=== PATIENT | female | born 1990 | race Hispanic/Latino ===

== ENCOUNTER 2017-01-08 17:29 | Emergency (ER) | payer MEDICAID ==
[2017-01-08 17:48] VITALS: BP 153/90
== END 2017-01-08 20:00 | disposition left against medical advice (07) ==
LOC: ED 17:29
DX: R07.89 Other chest pain (principal); R42 Dizziness and giddiness; Z53.21 Procedure and treatment not carried out due to patient leaving prior to being seen by health care provider
CPT/HCPCS: 93005; 93010

== ENCOUNTER 2017-03-16 16:05 | Emergency (ER) | payer MEDICAID ==
--- NOTE | 2017-03-16 23:45 | Emergency Department Report ---
ED ENT HPI - General Chief complaint: Dental/Oral Stated complaint: SEVERE TOOTHACHE Time Seen by Provider: 03/16/17 22:34 Source: patient Mode of arrival: Ambulatory Limitations: No Limitations - History of Present Illness Initial comments: This is a 26-year-old female well-nourished with nontoxic or ill in appearance that presents with dental caries. Patient stated that she has an appointment with Dr. miranda an oral surgeon on the for her dental caries. Patient stated that the mother was are not able to see her earlier. She stated Dr. miranda instructed her to come to the emergency room if pain does not subside with ibuprofen. Patient stated has a history of this for the past 2 years but denies having medical treatment. Patient denies any fever, chills, abscess, difficulty breathing, swallowing, chest pain, shortness of breath, nausea vomiting. Patient denies any allergies. Patient stated the only thing that makes her feel better is a narcotic such as Ultram. MD complaint: tooth pain -: Gradual, year(s) (2) Location: tooth # (4-14 ) Severity: moderate Severity scale (0 -10): 7 Quality: aching Consistency: constant Improves with: other medication (Ultram) Context- Dental: history of dental caries, poor dental care Associated Symptoms: denies: fever, cough, gum swelling, toothache, pain with swallowing, sore throat, tinnitus, hearing loss, discharge from ear, rhinorrhea - Related Data Previous Rx's Medication Instructions Recorded Last Taken Type Acetaminophen/Codeine [Tylenol #3] 1 tab PO Q6H PRN #20 tab 05/10/16 Unknown Rx Penicillin Vk [Veetids TAB] 500 mg PO Q8H #30 tablet 05/10/16 Unknown Rx Ibuprofen [Motrin 600 MG tab] 600 mg PO Q8H PRN #15 tablet 03/16/17 Unknown Rx Allergies Allergy/AdvReac Type Severity Reaction Status Date / Time No Known Allergies Allergy Verified 01/08/17 17:50 ED Dental HPI - General Chief complaint: Dental/Oral Stated complaint: SEVERE TOOTHACHE Time Seen by Provider: 03/16/17 22:34 Source: patient Mode of arrival: Ambulatory Limitations: No Limitations - Related Data Previous Rx's Medication Instructions Recorded Last Taken Type Acetaminophen/Codeine [Tylenol #3] 1 tab PO Q6H PRN #20 tab 05/10/16 Unknown Rx Penicillin Vk [Veetids TAB] 500 mg PO Q8H #30 tablet 05/10/16 Unknown Rx Ibuprofen [Motrin 600 MG tab] 600 mg PO Q8H PRN #15 tablet 03/16/17 Unknown Rx Allergies Allergy/AdvReac Type Severity Reaction Status Date / Time No Known Allergies Allergy Verified 01/08/17 17:50 ED Review of Systems ROS: Stated complaint: SEVERE TOOTHACHE Other details as noted in HPI Constitutional: denies: chills, fever Eyes: denies: eye pain, eye discharge, vision change ENT: denies: ear pain, throat pain Respiratory: denies: cough, shortness of breath, wheezing Cardiovascular: denies: chest pain, palpitations Endocrine: no symptoms reported Gastrointestinal: denies: abdominal pain, nausea, diarrhea Genitourinary: denies: urgency, dysuria, discharge Musculoskeletal: denies: back pain, joint swelling, arthralgia Skin: denies: rash, lesions Neurological: denies: headache, weakness, paresthesias Psychiatric: denies: anxiety, depression Hematological/Lymphatic: denies: easy bleeding, easy bruising ED Past Medical Hx - Past Medical History Previous Medical History?: Yes Additional medical history: BELLS PALSY - Surgical History Hx Cholecystectomy: Yes Additional Surgical History: pyloric stenosis, R arm - Social History Smoking Status: Current Every Day Smoker Substance Use Type: None - Medications Home Medications: Home Medications Medication Instructions Recorded Confirmed Last Taken Type Acetaminophen/Codeine [Tylenol #3] 1 tab PO Q6H PRN #20 tab 05/10/16 Unknown Rx Penicillin Vk [Veetids TAB] 500 mg PO Q8H #30 tablet 05/10/16 Unknown Rx Ibuprofen [Motrin 600 MG tab] 600 mg PO Q8H PRN #15 tablet 03/16/17 Unknown Rx ED Physical Exam - General Limitations: No Limitations General appearance: alert, in no apparent distress - Head Head exam: Present: atraumatic, normocephalic - Eye Eye exam: Present: normal appearance, PERRL, EOMI Pupils: Present: normal accommodation - ENT ENT exam: Present: normal exam, normal orophraynx, mucous membranes moist, TM's normal bilaterally, normal external ear exam - Expanded ENT Exam Expanded Ear exam: Present: normal external inspection Mouth exam: Present: normal external inspection, tongue normal. Absent: drooling, trismus, muffled voice, tongue elevation, laceration Teeth exam: Present: dental caries (4-14). Absent: gingival enlargement Throat exam: Positive: normal inspection. Negative: tonsillar erythema, tonsillomegaly, tonsillar exudate, R peritonsillar mass, L peritonsillar mass - Neck Neck exam: Present: normal inspection - Respiratory Respiratory exam: Present: normal lung sounds bilaterally. Absent: respiratory distress - Cardiovascular Cardiovascular Exam: Present: regular rate, normal rhythm. Absent: systolic murmur, diastolic murmur, rubs, gallop - GI/Abdominal GI/Abdominal exam: Present: soft, normal bowel sounds - Extremities Exam Extremities exam: Present: normal inspection, full ROM, normal capillary refill. Absent: tenderness, pedal edema, joint swelling, calf tenderness - Back Exam Back exam: Present: normal inspection, full ROM. Absent: tenderness, CVA tenderness (R), CVA tenderness (L), muscle spasm, paraspinal tenderness, vertebral tenderness, rash noted - Neurological Exam Neurological exam: Present: alert, oriented X3, CN II-XII intact, normal gait - Psychiatric Psychiatric exam: Present: normal affect, normal mood - Skin Skin exam: Present: warm, dry, intact, normal color. Absent: rash - Other Other exam information: No dental abscess. No dental pus. No dental drainage. ED Course Vital Signs 03/16/17 17:43 Temperature 98.9 F Pulse Rate 68 Respiratory 18 Rate Blood Pressure 123/63 O2 Sat by Pulse 98 Oximetry ED Medical Decision Making - Medical Decision Making Ed course: This is a 26-year-old female that presents with several dental carries with a 2 year hx of this problem 1- after my physical exam, patient received ibuprofen 600 mg by mouth at the time of discharge. 2-patient was referred to another dentist/oral surgeon to have the patient be seen before the . 3- at time time of discharge, the patient does not seem toxic or ill in appearance. No acute signs of distress noted. Patient agrees to discharge treatment plan of care. No further questions noted by the patient. Critical care attestation.: If time is entered above; I have spent that time in minutes in the direct care of this critically ill patient, excluding procedure time. ED Disposition Clinical Impression: Dental caries Disposition: DISCHARGED TO HOME OR SELFCARE Is pt being admited?: No Does the pt Need Aspirin: No Condition: Stable Instructions: Dental Caries (ED) Additional Instructions: Follow-up with a dentist/oral surgeon as soon as possible. You have been referred to several other dentist/oral surgeon. Take ibuprofen as prescribed as needed for pain. Prescriptions: Ibuprofen [Motrin 600 MG tab] 600 mg PO Q8H PRN #15 tablet PRN Reason: Pain Referrals: LIZZ WISE MD [Primary Care Provider] - 3-5 Days [facility] [Outside] - 24 Hours Forms: Work/School Release Form(ED)
[2017-03-16 23:51] VITALS: BP 114/78
== END 2017-03-16 23:55 | disposition home or self-care (01) ==
LOC: ED 16:05
DX: K02.9 Dental caries, unspecified (principal); F17.200 Nicotine dependence, unspecified, uncomplicated
CPT/HCPCS: 99282

== ENCOUNTER 2017-09-30 10:29 | Emergency (ER) | payer MEDICAID ==
[2017-09-30 10:39] VITALS: BP 123/54
[2017-09-30] MEDS ORDERED: VIBRAMYCIN PO ONE (12:09)
--- NOTE | 2017-09-30 12:09 | Emergency Department Report ---
Chief Complaint: Skin/Abscess/Foreign Body Stated Complaint: BUTTOCKS ABSCESS Time Seen by Provider: 09/30/17 12:07 - HPI History of Present Illness: Patient is a 26-year-old female who is presenting with a left buttock abscess. Patient states that this has been present for the last 3 days. She states that it was draining however it appears that it has stopped and it is gotten larger over the last several days. Patient denies fever nausea vomiting diarrhea. Patient has 8 out of 10. - ROS Review of Systems: As this is negative except for those elements in the HPI - Exam Vital Signs: Vital Signs 09/30/17 10:35 Temperature 98.1 F Pulse Rate 87 Respiratory 18 Rate Blood Pressure 123/54 O2 Sat by Pulse 100 Oximetry Physical Exam: His physical exam shows area of induration and cellulitis to the left lower buttock with central fluctuance and purulent and bloody drainage MSE screening note: Focused history and physical exam performed. Due to findings the following was ordered: Patient will undergo a I&D procedure here in fast track area ED Disposition for MSE Condition: Stable Referrals: ELISHA FARRAR MD [Primary Care Provider] - 3-5 Days
[2017-09-30] MEDS ORDERED: PERCOCET 5/325 PO ONE (12:10)
--- NOTE | 2017-09-30 12:22 | Emergency Department Report ---
Abscess Boil HPI - HPI Chief Complaint: Skin/Abscess/Foreign Body Stated Complaint: BUTTOCKS ABSCESS Time Seen by Provider: 09/30/17 12:07 Duration: 5 Days Severity: Mild History: Yes Pain, Yes Purulent Drainage, No Fever, No Numbness, No Foreign Body , No Previous History, No Insect Bite HPI: 26-year-old female presents to ED complaining of abscess on her left neck region. She states that it started draining a couple of days ago and she put some gauze and taped it up to draining. She denies fevers/chills/nausea/ vomiting or any other problems Home Medications: Previous Rx's Medication Instructions Recorded Last Taken Type Penicillin Vk [Veetids TAB] 500 mg PO Q8H #30 tablet 05/10/16 Unknown Rx Acetaminophen/Codeine [Tylenol 1 tab PO Q6H PRN #10 tab 09/30/17 Unknown Rx /Codeine # 3 tab] Ibuprofen [Motrin 600 MG tab] 600 mg PO Q8H PRN #30 tablet 09/30/17 Unknown Rx Sulfamethoxazole/Trimethoprim 1 each PO BID #20 tablet 09/30/17 Unknown Rx [Bactrim DS TAB] Allergies/Adverse Reactions: Allergies Allergy/AdvReac Type Severity Reaction Status Date / Time No Known Allergies Allergy Verified 09/30/17 10:39 ED Review of Systems ROS: Stated complaint: BUTTOCKS ABSCESS Other details as noted in HPI Constitutional: denies: chills, fever Eyes: denies: eye pain, eye discharge, vision change ENT: denies: ear pain, throat pain Respiratory: denies: cough, shortness of breath, wheezing Cardiovascular: denies: chest pain, palpitations Endocrine: no symptoms reported Gastrointestinal: denies: abdominal pain, nausea, vomiting, diarrhea Genitourinary: denies: urgency, dysuria, discharge Musculoskeletal: denies: back pain, joint swelling, arthralgia Skin: denies: rash, lesions Neurological: denies: headache, weakness, paresthesias Psychiatric: denies: anxiety, depression Hematological/Lymphatic: denies: easy bleeding, easy bruising ED Past Medical Hx - Past Medical History Previous Medical History?: Yes Additional medical history: BELLS PALSY - Surgical History Past Surgical History?: Yes Hx Cholecystectomy: Yes Additional Surgical History: pyloric stenosis, R. arm surgery - Social History Smoking Status: Never Smoker - Medications Home Medications: Home Medications Medication Instructions Recorded Confirmed Last Taken Type Penicillin Vk [Veetids TAB] 500 mg PO Q8H #30 tablet 05/10/16 Unknown Rx Acetaminophen/Codeine [Tylenol 1 tab PO Q6H PRN #10 tab 09/30/17 Unknown Rx /Codeine # 3 tab] Ibuprofen [Motrin 600 MG tab] 600 mg PO Q8H PRN #30 tablet 09/30/17 Unknown Rx Sulfamethoxazole/Trimethoprim 1 each PO BID #20 tablet 09/30/17 Unknown Rx [Bactrim DS TAB] ED Abscess Boil Physical Exam - Exam General: Vital signs noted. No distress. Alert and acting appropriately. Front/Back of Body, Lg (Color): 1 - 4cm abscess Size: 4 cm Exam: Yes Fluctuance, Yes Surrounding Cellulites/Erythema, Yes Normal Circulation, No Tenderness, No Lymphangitis, No Crepitation, No Heart Murmur, No Normal Neurologic Exam I & D Note - I & D Note I & D Note: Patient positioned appropriately, 15cc lidocaine with/without epinephrine was used as a local anesthetic. #11 blade scalpal used for single incision. Additional local anesthetic injected into surrounding viable tissue prior to blunt dissection of loculated adhesions. Copius drainage of pus. Wound packed with iodoform gauze. Procedure tolerated without complications. Wound dressed with sterile 4x4 guaze and paper tape. Pt tolerated procedure well. ED Course Vital Signs 09/30/17 09/30/17 10:35 12:16 Temperature 98.1 F Pulse Rate 87 Respiratory 18 20 Rate Blood Pressure 123/54 O2 Sat by Pulse 100 Oximetry Critical care attestation.: If time is entered above; I have spent that time in minutes in the direct care of this critically ill patient, excluding procedure time. ED Medical Decision Making - Medical Decision Making 26-year-old female presents with left buttock abscess Course: Patient given pain medication and I&D tray set up See my I&D note. Discussed the patient to return to the ED in 3 days to have packing removed and wound assessed. Discussed follow-up with primary care physician in 5 days. Discussed to take antibiotics as prescribed Vital signs stable. patient tolerated procedure well ED Disposition Clinical Impression: Cellulitis and abscess of buttock Disposition: DC- TO HOME OR SELFCARE Is pt being admited?: No Does the pt Need Aspirin: No Condition: Stable Instructions: Abscess Incision and Drainage (ED), Abscess (ED) Additional Instructions: Make sure to follow up with the primary care physician as discussed. Take all your medications as you've been prescribed. If you have any worsening symptoms or develop new symptoms please return to ED immediately. Return to ED 3 days for wound check and packing removal Prescriptions: Acetaminophen/Codeine [Tylenol /Codeine # 3 tab] 1 tab PO Q6H PRN #10 tab PRN Reason: Pain Ibuprofen [Motrin 600 MG tab] 600 mg PO Q8H PRN #30 tablet PRN Reason: Pain Sulfamethoxazole/Trimethoprim [Bactrim DS TAB] 1 each PO BID #20 tablet Referrals: ELISHA FARRAR MD [Primary Care Provider] - 3-5 Days [facility] [place] [Outside] - 3-5 Days [facility] [Outside] - 3-5 Days Forms: Accompanied Note, Work/School Release Form(ED) Time of Disposition: 13:22
[2017-09-30] MEDS ORDERED: XYLOCAINE 1% 20 mL INFILTRATI NR (12:30)
== END 2017-09-30 13:32 | disposition home or self-care (01) ==
LOC: ED 10:29
DX: L02.31 Cutaneous abscess of buttock (principal); L03.317 Cellulitis of buttock
CPT/HCPCS: 99282

== ENCOUNTER 2020-02-10 08:43 | Outpatient (CLI) | payer MEDICAID ==
[2020-02-10 09:18] VITALS: BP 126/89
[2020-02-10 11:56] LABS: Hematocrit 36.5 % (30.3-42.9); Hemoglobin 12.1 gm/dl (10.1-14.3); Mean Corpuscular HGB Conc 33 % (30-34); Mean Corpuscular Volume 91 fl (79-97); Platelet Count 352 K/mm3 (140-440); Red Blood Count 4.02 M/mm3 (3.65-5.03); Red Cell Distribution Width 13.2 % (13.2-15.2)
--- NOTE | 2020-02-10 12:30 | Ultrasound Report ---
ULTRASOUND OBSTETRIC third trimester Biophysical profile INDICATION / CLINICAL INFORMATION: MICHAEL, EFW, RULE OUT ABRUPTION, PRESENTATION. Clinical Gestational Age (GA): 38 weeks 3 days TECHNIQUE: Transabdominal. COMPARISON: None available. FINDINGS: There is a single intrauterine . Biparietal Diameter = 9.2 cm = 37 weeks, 3 day(s). Head Circumference = 33.5 cm = 38 weeks, 2 day(s). Abdominal Circumference = 35.8 cm = 39 weeks, 5 day(s). Femur Length = 7.5 cm = 38 weeks, 1 day(s). Average Ultrasound Age (AUA) = 38 weeks, 3 day(s). Heart Rate: 152 beats per minute. Estimated Weight in grams (if calculated): 3626 Estimated Weight Growth Percentile (if calculated): Position: cephalic. Cervix: closed. Length in cm (if measured): Placenta: Posterior fundal grade 2 and free of the os. Amniotic Fluid Volume: normal Amniotic Fluid Index (MICHAEL) in cm (if calculated): 15. Maternal Adnexa: No significant abnormality. ULTRASOUND BIOPHYSICAL PROFILE INDICATION: MICHAEL, EFW, RULE OUT ABRUPTION, PRESENTATION. COMPARISON: None available. FINDINGS: BREATHING MOVEMENT = 2 GROSS BODY MOVEMENT = 2 TONE = 2 QUALITATIVE AMNIOTIC FLUID VOLUME = 2 TOTAL BIOPHYSICAL SCORE = 8/8 AMNIOTIC FLUID INDEX (cm) = 15 PRESENTATION: Cephalic. HEART RATE (beats per minute): 152 IMPRESSION: 1. biophysical profile = 8/8 IMPRESSION: 1. Single, living intrauterine with estimated sonographic age of 38 weeks, 3 day(s). 2. No significant sonographic abnormality. 3. Normal biophysical profile Signer Name: Graeme Astorga MD Signed: 02/10/2020 12:25 PM Workstation Name: [email or web address]
--- NOTE | 2020-02-12 22:11 | Ultrasound Report ---
ULTRASOUND BIOPHYSICAL PROFILE INDICATION / CLINICAL INFORMATION: WELL BEING. COMPARISON: None available. FINDINGS: BREATHING MOVEMENT = 2 GROSS BODY MOVEMENT = 2 TONE = 2 QUALITATIVE AMNIOTIC FLUID VOLUME = 2 TOTAL BIOPHYSICAL SCORE = 05/25 AMNIOTIC FLUID INDEX (cm) = 15.0 PRESENTATION: Cephalic. HEART RATE (beats per minute): 152 IMPRESSION: biophysical profile = 05/25 Signer Name: Trell Lombardo MD Signed: 02/12/2020 10:06 PM Workstation Name: [email or web address]
== END 2020-02-10 13:35 | disposition home or self-care (01) ==
LOC: TRG 08:43 → APU 08:47 → TRG 13:35
PROVIDERS: ATTEND Obstetrics & Gynecology
DX: O46.8X3 Other antepartum hemorrhage, third trimester (principal); Z3A.39 39 weeks gestation of pregnancy
CPT/HCPCS: 36415; 59025; 76805; 76819; 85027

== ENCOUNTER 2020-02-10 19:19 | Inpatient (IN) | payer MEDICAID ==
[2020-02-10] MEDS ORDERED: TERBUTALINE 1 MG/1 ML INJ IVP PRN (19:53)
[2020-02-10] MEDS ORDERED: fentaNYL 100 MCG/2 ML INJ IV PRN (19:53)
[2020-02-10] MEDS ORDERED: LIDOCAINE (2%) 20 MG/1 ML VIAL 20 ML MDV INFILTRATI ONE (19:53)
[2020-02-10] MEDS ORDERED: MINERAL OIL 30 ML ORAL LIQD PO PRN (19:53)
[2020-02-10] MEDS ORDERED: TERBUTALINE 1 MG/1 ML INJ SUB-Q PRN (19:53)
[2020-02-10] MEDS ORDERED: ePHEDrine SULFATE 50 MG/1 ML INJ IV PRN (19:53)
[2020-02-10] MEDS ORDERED: BUTORPHANOL 2 MG/1 ML INJ IV PRN (19:53)
[2020-02-10] MEDS ORDERED: AMPICILLIN/NS 2 GM/100 ML 2 GM/100 ML BAG IV ONE (19:53)
[2020-02-10] MEDS ORDERED: OXYTOCIN 20 UNIT/1000ML DRIP 20 UNITS/1,000 ML BAG IV SCH ×2 (20:00→23:00)
[2020-02-10] MEDS: LACTATED RINGERS 1,000 ML IV SCH ×2 (20:23→21:57)
[2020-02-10] MEDS ORDERED: ONDANSETRON 4 MG/2 ML INJ ONE ×2 (20:24→21:43)
[2020-02-10 21:04] LABS: Basophils # (Auto) 0.1 K/mm3 (0.0-0.1); Basophils % (Auto) 0.4 % (0.0-1.8); Eosinophils # (Auto) 0.1 K/mm3 (0.0-0.4); Eosinophils % (Auto) 0.6 % (0.0-4.3); Hematocrit 33.7 % (30.3-42.9); Hemoglobin 11.5 gm/dl (10.1-14.3); Lymphocytes # (Auto) 2.6 K/mm3 (1.2-5.4); Lymphocytes % (Auto) 15.8 % (13.4-35.0); Mean Corpuscular HGB Conc 34 % (30-34); Mean Corpuscular Volume 90 fl (79-97); Monocytes # (Auto) 1.1 K/mm3 (0.0-0.8); Monocytes % (Auto) 7.1 % (0.0-7.3); Platelet Count 346 K/mm3 (140-440); Red Blood Count 3.72 M/mm3 (3.65-5.03); Red Cell Distribution Width 13.2 % (13.2-15.2)
[2020-02-10 21:33] LABS: Hepatitis C Virus Antibody Non-Reactive (NonReactive)
[2020-02-10] MEDS ORDERED: NALOXONE 2 MG/2 ML INJ IV PRN (21:47)
--- NOTE | 2020-02-10 21:48 | Anesthesia Consultation ---
Anesthesia Consult and Med Hx Date of service: 02/10/20 - Airway Anesthetic Teeth Evaluation: Good ROM Head & Neck: Adequate Mental/Hyoid Distance: Adequate Mallampati Class: Class II Intubation Access Assessment: Good - Pulmonary Exam CTA: Yes - Cardiac Exam Cardiac Exam: RRR - Pre-Operative Health Status ASA Pre-Surgery Classification: ASA2, Emergency Proposed Anesthetic Plan: Epidural - Pulmonary Hx Asthma: No - Cardiovascular System Hx Hypertension: No - Central Nervous System Hx Seizures: No Hx Psychiatric Problems: No - Endocrine Hx Renal Disease: No Hx Hypothyroidism: No Hx Hyperthyroidism: No - Hematic Hx Anemia: No Hx Sickle Cell Disease: No - Other Systems Hx Alcohol Use: No
--- NOTE | 2020-02-10 21:51 | Progress Note ---
Labor Epidural - Labor Epidural Start Time: 21:29 Stop Time: 21:36 Performed by:: IRINA WASHINGTON Procedure: Patient is requesting a laboring epidural for laboring pain. Patient IDed, H&P reviewed, all questions and concerns were answered, and consent was signed. Timeout was performed at bedside. Patient in sitting position. Sterile prep and drape was performed. 3 ml of 1% lidocaine skin wheal at L 3- L 4. 18-gauge Touhy epidural needle was advanced to loss of resistance with air technique. Negative CSF negative blood. Epidural catheter advanced to 15 centimeters. - Aspiration - test dose. Sterile dressing applied. Patient tolerated procedure.
[2020-02-10] MEDS ORDERED: fentaNYL-BUPIV 2 MCG/ML-0.125% 200 MCG/100 ML BAG EPIDURAL SCH (22:00)
--- NOTE | 2020-02-10 22:33 | History and Physical Report ---
History of Present Illness Date of examination: 02/10/20 Date of admission: 02/10/20 19:53 Chief complaint: labor History of present illness: This is a 29 yo female at 39 weeks here for labor. ivonne was here early with vaginal bleeding and noted to be 4cm. She had US of BPP and normal fluid without signs or appearance of abruption. patient returned several hours at 7cm. she had care in [facility] but had not been in several weeks after moving to [place] Past History Past Medical History: other (obese) Past Surgical History: no surgical history Family/Genetic History: none Social history: single. denies: smoking, alcohol abuse, prescription drug abuse - Obstetrical History Expected Date of Delivery: 02/13/20 Actual Gestation: 39 Week(s) 4 Day(s) : 3 Para: 1 Hx # Term Pregnancies: 1 Number of Pregnancies: 0 Spontaneous Abortions: 0 Induced : 1 Number of Living Children: 1 Medications and Allergies Allergies Allergy/AdvReac Type Severity Reaction Status Date / Time No Known Allergies Allergy Verified 09/30/17 10:39 Home Medications Medication Instructions Recorded Confirmed Last Taken Type Penicillin Vk [Veetids TAB] 500 mg PO Q8H #30 tablet 05/10/16 Unknown Rx Acetaminophen/Codeine [Tylenol 1 tab PO Q6H PRN #10 tab 09/30/17 Unknown Rx /Codeine # 3 tab] Ibuprofen [Motrin 600 MG tab] 600 mg PO Q8H PRN #30 tablet 09/30/17 Unknown Rx Sulfamethoxazole/Trimethoprim 1 each PO BID #20 tablet 09/30/17 Unknown Rx [Bactrim DS TAB] Active Meds: Active Medications Butorphanol Tartrate (Stadol) 2 mg IV Q2H PRN PRN Reason: Pain , Severe (7-10) Ephedrine Sulfate (Ephedrine Sulfate) 10 mg IV Q2M PRN PRN Reason: Hypotension Fentanyl (Sublimaze) 100 mcg IV Q2H PRN PRN Reason: Labor Pain Oxytocin/Sodium Chloride (Pitocin/Ns 20 Unit/1000ml Drip) 20 units in 1,000 mls @ 125 mls/hr IV DIRECT MARJORIE Lactated Ringer's (Lactated Ringers) 1,000 mls @ 125 mls/hr IV DIRECT MARJORIE Last Admin: 02/10/20 21:57 Dose: 125 mls/hr Documented by: Ampicillin Sodium (Ampicillin/Ns 1 Gm/50 Ml) 1 gm in 50 mls @ 100 mls/hr IV Q4HR MARJORIE; Protocol Fentanyl/Bupivacaine/Sodium Chlor (Fentanyl-Bupiv 2 Mcg/Ml-0.125%) 200 mcg in 100 mls @ 12 mls/hr EPIDURAL TITR MARJORIE; Protocol Mineral Oil (Mineral Oil) 30 ml PO QHS PRN PRN Reason: Constipation Naloxone HCl (Naloxone) 0.2 mg IV Q5M PRN PRN Reason: Respiratory sedation Terbutaline Sulfate (Brethine) 0.25 mg SUB-Q ONCE PRN PRN Reason: Hyperstimulation/Hypertonicity Terbutaline Sulfate (Brethine) 0.25 mg IVP ONCE PRN PRN Reason: Hyperstimulation/Hypertonicity Review of Systems All systems: negative - Vital Signs Vital signs: Vital Signs Pulse Pulse Ox 92 H 91 02/10/20 19:53 02/10/20 19:53 Temp Pulse Resp BP Pulse Ox 98.0 F 101 H 18 138/85 80 L 02/10/20 20:18 02/10/20 22:28 02/10/20 20:18 02/10/20 22:15 02/10/20 22:28 - Physical Exam Breasts: Positive: normal Cardiovascular: Regular rate, Normal S1 Lungs: Positive: Clear to auscultation, Normal air movement Abdomen: Positive: normal appearance, normal bowel sounds. Negative: disten tion, tenderness, guarding Genitourinary (Female): Positive: normal external genitalia, normal perenium Vagina: Positive: normal moisture Uterus: Positive: normal size, normal contour Extremities: Positive: normal Deep Tendon Reflex Grade: Normal +2 - Obstetrical Cervical Dilatation: 7 Cervical Effacement Percentage: 100 station: -2 Uterine Contraction Pattern: Regular Uterine Tone Measurement Phase: Contraction Uterine Contraction Intensity: Strong/Firm Results Result Diagrams: 02/10/20 20:42 Abnormal lab results 02/10/20 Range/Units 20:42 WBC 16.2 H (4.5-11.0) K/mm3 Castro # 1.1 H (0.0-0.8) K/mm3 Seg Neutrophils % 76.1 H (40.0-70.0) % Seg Neutrophils # 12.3 H (1.8-7.7) K/mm3 All other labs normal. Assessment and Plan A/P IUP 39 weeks active labor GBS unnknown obesity admit ivf, labs offer epidural expect vaginal delivery
[2020-02-10] MEDS ORDERED: ACETAMINOPHEN 325 MG TAB PO PRN (22:35)
[2020-02-10] MEDS ORDERED: diphenhydrAMINE 25 MG CAP PO PRN (22:35)
[2020-02-10] MEDS ORDERED: oxyCODONE /ACETAMINOPHEN 5-325MG TAB PO PRN (22:35)
[2020-02-10] MEDS ORDERED: ONDANSETRON 4 MG/2 ML INJ IV PRN (22:35)
[2020-02-10] MEDS ORDERED: PROMETHAZINE 25 MG RECT SUPP PR PRN (22:35)
[2020-02-10] MEDS ORDERED: HYDROcodone/ACETAMINOPHEN 5-325 MG TAB PO PRN (22:35)
[2020-02-10] MEDS ORDERED: LANOLIN/ZINC/DIMETHICONE (LANSINOH) 7 GM TP PRN (22:35)
[2020-02-10] MEDS ORDERED: MAGNESIUM HYDROXIDE (MOM) ORAL LIQD UDC PO PRN (22:35)
[2020-02-10] MEDS ORDERED: KETOROLAC 30 MG/1 ML INJ IV PRN (22:35)
[2020-02-10] MEDS ORDERED: WITCH HAZEL/ GLYCERIN PAD TP PRN (22:35)
[2020-02-10] MEDS ORDERED: PROMETHAZINE 25 MG TAB PO PRN (22:35)
[2020-02-10 23:00] LABS: Amphetamine Screen,Urine PRESUMPTIVE NEGATIVE; Benzodiazepines Screen,Urine PRESUMPTIVE NEGATIVE; Cannabinoid Screen,Urine PRESUMPTIVE NEGATIVE; Cocaine Screen,Urine PRESUMPTIVE NEGATIVE; Methadone Screen,Urine PRESUMPTIVE NEGATIVE; Opiate Screen,Urine PRESUMPTIVE NEGATIVE
[2020-02-10 23:05] LABS: Bilirubin,Urine NEG (Negative); Blood,Urine SM (Negative); Color,Urine Yellow (Yellow); Mucus,Urine 1+ /HPF; Protein,Urine <15 mg/dL mg/dL (Negative); Urobilinogen,Urine < 2.0 mg/dL (<2.0)
--- NOTE | 2020-02-10 23:13 | Procedure Note ---
OB Delivery Note - Delivery Date of Delivery: 02/10/20 Surgeon: KAT JORDAN Estimated blood loss: 100cc - Vaginal Delivery position: OA Intrapartum events: no care Delivery induction: none Delivery monitor: external FHT, external uterine Route of delivery: Delivery placenta: spontaneous Delivery cord: 3 umbilical vessels Episiotomy: none Delivery laceration: 1st degree Anesthesia: epidural Delivery comments: Pt progressed to complete/complete/+3 and pushed to deliver a viable male over intact perineum via under epidural anesthesia. Head delivered LOBO. placed on maternal abdomen and bulb suctioned. Cord clamped and cut and handed to nurse in attendance. Cord blood collected. Placenta delivered intact. Periurethral lacerations noted to be hemostatic. First degree perineal laceration not repaired . EBL 100 cc - Infant A at 1 minute: 8 at 5 minutes: 9 Gender: Male (7 pound 6.8 oz)
[2020-02-10] MEDS ORDERED: AMPICILLIN/NS 1 GM/50 ML 1 GM/50 ML BAG IV SCH (23:53)
[2020-02-11] MEDS ORDERED: PRENATAL VIT27-FE FUMARATE-FOLIC ACID VIT TAB PO SCH (10:00)
[2020-02-11] MEDS: DOCUSATE SODIUM 100 MG CAP PO SCH ×2 (10:21→22:49)
[2020-02-11] MEDS: IBUPROFEN 600 MG TAB PO SCH ×2 (10:25→18:00)
--- NOTE | 2020-02-11 11:14 | Progress Note ---
Assessment and Plan A: PPD1 s/p Vital signs stable Intrapartum hgb 11.5, awaiting P: Routine pp care Discharge today (if is d/c) per patient preference and lack of childcare for older child Subjective - Subjective Date of service: 02/11/20 Principal diagnosis: s/p Interval history: PPD1 s/p Patient reports: appetite normal, voiding normally, pain well controlled, ambulating normally [employer]: doing well, bottle feeding Objective - Vital Signs Latest vital signs: Vital Signs Temp Pulse Resp BP BP Pulse Ox 02/11/20 08:07 97.7 F 73 18 97/32 97 02/11/20 04:59 97.8 F 87 18 109/57 97 02/11/20 01:44 98.2 F 75 24 111/60 94 02/11/20 00:59 86 135/66 02/11/20 00:44 71 121/59 02/11/20 00:29 86 111/57 02/11/20 00:14 88 140/68 02/10/20 23:59 81 124/67 02/10/20 23:44 88 114/68 02/10/20 23:29 79 109/51 02/10/20 23:14 93 H 124/60 02/10/20 22:59 84 140/77 02/10/20 22:44 90 132/67 02/10/20 22:33 88 96 02/10/20 22:29 90 114/58 02/10/20 22:28 88 100 02/10/20 22:15 89 138/85 02/10/20 22:06 83 99 02/10/20 22:01 78 99 02/10/20 21:59 84 90 02/10/20 21:58 70 148/69 02/10/20 21:56 78 147/83 98 02/10/20 21:55 83 144/81 02/10/20 21:53 70 94 02/10/20 21:52 75 133/79 02/10/20 21:51 98 H 100 02/10/20 21:50 78 127/60 02/10/20 21:47 70 128/60 02/10/20 21:45 85 177/122 02/10/20 21:40 76 138/63 97 02/10/20 21:38 70 136/64 02/10/20 21:37 87 151/70 02/10/20 21:35 77 98 02/10/20 21:33 82 141/89 02/10/20 21:30 98 H 100 02/10/20 21:25 92 H 99 02/10/20 21:14 87 97 02/10/20 21:09 84 98 02/10/20 21:04 84 98 02/10/20 20:59 92 H 96 02/10/20 20:58 86 94 02/10/20 20:54 84 96 02/10/20 20:49 85 97 02/10/20 20:44 83 97 02/10/20 20:39 87 98 02/10/20 20:34 93 H 97 02/10/20 20:27 84 98 02/10/20 20:25 82 127/81 02/10/20 20:24 83 94 02/10/20 20:22 87 95 02/10/20 20:18 98.0 F 93 H 18 135/76 95 02/10/20 20:17 85 96 02/10/20 20:12 89 95 02/10/20 20:07 90 95 02/10/20 20:06 89 94 02/10/20 20:02 93 H 95 02/10/20 19:57 90 95 02/10/20 19:54 92 H 135/76 02/10/20 19:53 92 H 91 Intake and Output 02/10/20 02/11/20 02/11/20 23:59 07:59 15:59 Intake Total 293.75 240 Output Total 150 Balance 143.75 240 Intake: IV 293.75 AMPICILLIN/NS 2 GM/100 ML 100 2 gm In 100 ml @ 100 mls /hr IV ONCE ONE Rx#: [id number] Lactated Ringers 1,000 ml 193.75 @ 125 mls/hr IV DIRECT MARJORIE Rx#:[id number] Intake, Free Water 240 Output: Urine 150 Uretheral (Cordero) 150 Other: # Voids Void 1 Weight 290 lb 15.986 oz Estimated Blood Loss 100 - Exam Lungs: Present: Normal air movement Abdomen: Present: soft. Absent: distention Uterus: Present: firm, fundal height below umbilicus. Absent: bogginess Extremities: Present: normal - Labs Labs: Abnormal lab results 02/10/20 02/10/20 Range/Units 20:42 22:21 WBC 16.2 H (4.5-11.0) K/mm3 [place] # 1.1 H (0.0-0.8) K/mm3 Seg Neutrophils % 76.1 H (40.0-70.0) % Seg Neutrophils # 12.3 H (1.8-7.7) K/mm3 Urine pH 8.0 H (5.0-7.0) Urine WBC (Auto) 12.0 H (0.0-6.0) /HPF
--- NOTE | 2020-02-11 11:17 | Discharge Summary ---
Providers - Providers Date of Admission: 02/10/20 19:53 Date of discharge: 02/11/20 Attending physician: KAT JORDAN MD Primary care physician: KAT JORDAN MD Hospitalization Reason for admission: active labor, IUP at term Delivery: Episiotomy: none Laceration: 1st degree (not repaired) Other procedures: none complications: none Discharge diagnosis: IUP at term delivered Hospital course: Pt arrived in active labor and progressed to . She met discharge criteria on PPD2. Condition at discharge: Good Disposition: DC-01 TO HOME OR SELFCARE Plan - Discharge Medications Prescriptions: Ibuprofen [Motrin 600 MG tab] 600 mg PO Q6HR #60 tablet - Provider Discharge Summary Additional instructions: [] Smoking cessation referral if applicable(refer to patient education folder for contact #) [] Refer to [facility] Booklet Call your doctor immediately for: * Fever > 100.5 * Heavy vaginal bleeding ( >1 pad per hour) * Severe persistent headache * Shortness of breath * Reddened, hot, painful area to leg or breast * Drainage or odor from incision. * Keep incision clean and dry at all times and follow doctor's instructions regarding bathing/showering - Follow up plan Follow up: KAT JORDAN MD [Primary Care Provider] - 14 Days (Please call [place] [facility] patient safety officer at [phone] to schedule appointment.)
[2020-02-11 11:36] LABS: Hematocrit 33.6 % (30.3-42.9); Hemoglobin 11.3 gm/dl (10.1-14.3)
--- NOTE | 2020-02-11 19:31 | Post Anesthesia Evaluation ---
- Post Anesthesia Evaluation Patient Participated: Yes Airway Patent: Yes Stable Respiratory Function: Yes Nausea/Vomiting: No Temp > 96.8F: Yes Pain Manageable: Yes Adequeate Hydration: Yes Anesthesia Complications: No Block Receding Appropriately: Yes Patient on Ventilator: No
[2020-02-11] MEDS ORDERED: MEASLES, MUMPS & RUBELLA 12,500 UNIT/0.5 ML VACCINE SUB-Q ONE (22:35)
[2020-02-12] MEDS: IBUPROFEN 600 MG TAB PO SCH ×2 (00:39→05:50)
[2020-02-12] MEDS ORDERED: TETANUS,DIPH,PERTUSS(ACELL) VACCINE 0.5 ML SYRINGE IM ONE (06:00)
[2020-02-12 09:22] VITALS: BP 110/62
== END 2020-02-12 12:00 | disposition home or self-care (01) | DRG 775 ==
LOC: TRG 19:19 → APU 19:21 → LD 19:51 → TRG 19:55 → OB 02-11 01:49
PROVIDERS: ADMIT Obstetrics & Gynecology; ATTEND Obstetrics & Gynecology
PROC: 10E0XZZ Delivery of Products of Conception, External Approach (ICD-10-PCS; principal; 2020-02-10)
PROC: 3E0R3BZ Introduction of Anesthetic Agent into Spinal Canal, Percutaneous Approach (ICD-10-PCS; 2020-02-10)
PROC: 00HU33Z Insertion of Infusion Device into Spinal Canal, Percutaneous Approach (ICD-10-PCS; 2020-02-10)
PROC: 3E0234Z Introduction of Serum, Toxoid and Vaccine into Muscle, Percutaneous Approach (ICD-10-PCS; 2020-02-11)
DX: O99.214 Obesity complicating childbirth (principal); Z3A.39 39 weeks gestation of pregnancy; Z37.0 Single live birth; E66.9 Obesity, unspecified; O70.0 First degree perineal laceration during delivery
CPT/HCPCS: 36415; 59025; 76805; 80307; 81001; 85014; 85018; 85025; 85027; 85461; 86592; 86706; 86762; 86803; 86850; 86900; 86901; 87086; 87806; 88307; G0378; J0290; J2405; J2590; J2790; J3010; J7120

== ENCOUNTER 2020-11-14 13:14 | Outpatient (CLI) | payer MEDICAID | END 2020-11-14 13:55 | disposition home or self-care (01) | LOC: TRG 13:14 → APU 13:14 → TRG 13:55 | PROVIDERS: ATTEND Obstetrics & Gynecology | DX: O26.893 Other specified pregnancy related conditions, third trimester (principal); Z67.41 Type O blood, Rh negative; Z3A.31 31 weeks gestation of pregnancy | CPT/HCPCS: 86850; 86900; 86901; 96372; J2790 ==

== ENCOUNTER 2021-01-05 06:13 | Inpatient (IN) | payer MEDICAID ==
[2021-01-05] MEDS ORDERED: miSOPROStol 200 MCG TAB PR PRN (07:15)
[2021-01-05] MEDS ORDERED: METHYLERGONOVINE MALEATE 0.2 MG/ML VIAL IM PRN (07:15)
[2021-01-05] MEDS ORDERED: LIDOCAINE (2%) 20 MG/1 ML VIAL 20 ML MDV INFILTRATI NR (07:15)
[2021-01-05] MEDS ORDERED: OXYTOCIN DRIP 30 UNITS/500 ML BAG IV SCH ×2 (07:15→08:00)
[2021-01-05] MEDS ORDERED: TERBUTALINE 1 MG/1 ML INJ SUB-Q PRN (07:15)
[2021-01-05] MEDS ORDERED: ePHEDrine SULFATE 50 MG/1 ML INJ IV PRN (07:15)
[2021-01-05] MEDS ORDERED: ONDANSETRON 4 MG/2 ML INJ IV PRN (07:15)
[2021-01-05] MEDS ORDERED: fentaNYL 100 MCG/2 ML INJ IV PRN (07:15)
[2021-01-05] MEDS ORDERED: AMPICILLIN/NS 2 GM/100 ML 2 GM/100 ML BAG IV ONE (07:15)
[2021-01-05] MEDS ORDERED: LACTATED RINGERS 1,000 ML IV SCH (07:15)
[2021-01-05] MEDS ORDERED: OXYTOCIN 10 UNIT/1 ML INJ IM PRN (07:15)
[2021-01-05 08:51] LABS: Hematocrit 36.7 % (30.3-42.9); Hemoglobin 12.3 gm/dl (10.1-14.3); Mean Corpuscular HGB Conc 33 % (30-34); Mean Corpuscular Volume 89 fl (79-97); Platelet Count 412 K/mm3 (140-440); Red Blood Count 4.11 M/mm3 (3.65-5.03)
[2021-01-05] MEDS ORDERED: WITCH HAZEL/ GLYCERIN PAD TP PRN (09:00)
[2021-01-05] MEDS ORDERED: IBUPROFEN 600 MG TAB PO SCH (09:00)
[2021-01-05] MEDS ORDERED: diphenhydrAMINE 25 MG CAP PO PRN (09:00)
[2021-01-05] MEDS ORDERED: LANOLIN/ZINC/DIMETHICONE (LANSINOH) 7 GM TP PRN (09:00)
[2021-01-05] MEDS ORDERED: PROMETHAZINE 25 MG TAB PO PRN (09:00)
--- NOTE | 2021-01-05 09:04 | Procedure Note ---
OB Delivery Note - Delivery Date of Delivery: 01/05/21 Surgeon: CHARLES BROWER Print Color Operator: ELA GARY Estimated blood loss: 500cc - Vaginal Delivery presentation: vertex Delivery position: OA Intrapartum events: precipitous labor- <3hr Delivery induction: none Delivery augmentation: rupture of membranes Delivery monitor: external FHT, external uterine Route of delivery: Delivery placenta: spontaneous Delivery cord: 3 umbilical vessels Episiotomy: none Delivery laceration: none Anesthesia: none Delivery comments: LISS present Counts correct X 2 Pt arrived 9cm dilated SROM live born male over intact perineum. Cord clamped and cut Passed to warmer. Cord blood drawn Placenta and membrane del complete and intact, 3 vessel cord. To pathology. Pit IM and IVFs. 9/9, EBL 500, Wgt 8-7. Mom and baby remain LDR stable. - A at 1 minute: 9 at 5 minutes: 9 Infant Gender: Male (wgt 8-7)
[2021-01-05] MEDS: IBUPROFEN 800 MG TAB PO SCH ×2 (10:05→18:09)
--- NOTE | 2021-01-05 10:24 | History and Physical Report ---
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 Please see delivery note for details. 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 She is GBS negative. 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: chlamydia (remote from this ), herpes (no lesion or prodrome ) Family/Genetic History: hypertension, cancer Social history: no significant social history - Obstetrical History Expected Date of Delivery: 01/25/21 Actual Gestation: 37 Week(s) 1 Day(s) : 4 Para: 2 Hx # Term Pregnancies: 2 Number of Pregnancies: 0 Spontaneous Abortions: 1 Induced : 0 Number of Living Children: 2 Medications and Allergies Allergies Allergy/AdvReac Type Severity Reaction Status Date / Time codeine AdvReac Severe Vomiting Verified 11/14/20 13:41 Home Medications Medication Instructions Recorded Confirmed Last Taken Type Ibuprofen [Motrin 600 MG tab] 600 mg PO Q6HR #60 tablet 02/11/20 Unknown Rx Active Meds: Active Medications Bisacodyl (Bisacodyl 10 Mg Rect Supp) 10 mg SC BID PRN PRN Reason: Constipation Diphenhydramine HCl (Diphenhydramine 25 Mg Cap) 25 mg PO Q6H PRN PRN Reason: Itching Diphtheria/Tetanus/Acell Pertussis (Diphtheria,Pertussis(Acell),Tetanus Vaccine/Pf 0.5 Ml Vial) 0.5 ml IM .ONCE ONE Stop: 01/06/21 08:40 Ibuprofen (Ibuprofen 800 Mg Tab) 800 mg PO Q8H MARJORIE Last Admin: 01/05/21 10:05 Dose: 800 mg Documented by: Magnesium Hydroxide (Magnesium Hydroxide (Mom) Oral Liqd Udc) 30 ml PO HS PRN PRN Reason: Constipation Measles/Mumps/Rubella Vaccine Live (Measles, Mumps & Rubella 12,500 Unit/0.5 Ml Vaccine) 0.5 ml SUB-Q .ONCE ONE Stop: 01/06/21 08:39 Multi-Ingredient Ointment (Lanolin/Zinc/Dimethicone (Lansinoh) 7 Gm) 1 applic TP PRN PRN PRN Reason: Sore Nipples Promethazine HCl (Promethazine 25 Mg Tab) 25 mg PO Q6H PRN PRN Reason: Nausea And Vomiting Sodium Chloride (Sodium Chloride 0.9% 10 Ml Flush Syringe) 10 ml IV PRN NR Stop: 01/16/21 08:59 Witch Sofia/Glycerin (Witch Sofia/ Glycerin Pad) 1 each TP PRN PRN PRN Reason: Hemorrhoid/cleansing/soothing Review of Systems All systems: negative - Vital Signs Vital signs: Vital Signs Pulse BP Pulse Ox 96 H 130/77 97 01/05/21 06:38 01/05/21 06:38 01/05/21 06:38 Temp Pulse Resp BP Pulse Ox 97.7 F 83 18 137/81 96 01/05/21 09:43 01/05/21 09:43 01/05/21 09:43 01/05/21 09:43 01/05/21 09:43 - Physical Exam Breasts: Positive: deferred Abdomen: Positive: soft (obese) Uterus: Positive: enlarged Extremities: Positive: edema (trace) Results Result Diagrams: 01/05/21 07:15 Abnormal lab results 01/05/21 Range/Units 07:15 WBC 16.5 H (4.5-11.0) K/mm3 All other labs normal. Assessment and Plan A: S/p at term Morbid Obesity Asthma Genital Herpes without lesion or prodrome Rh Negative GBS Negative P: Routine care Closely monitor clinical status.
[2021-01-05 10:37] LABS: Hepatitis C Virus Antibody Non-Reactive (NonReactive)
[2021-01-05] MEDS ORDERED: AMPICILLIN/NS 1 GM/50 ML 1 GM/50 ML BAG IV SCH (11:18)
[2021-01-05] MEDS ORDERED: HYDROcodone/ACETAMINOPHEN 5-325 MG TAB PO PRN (12:01)
[2021-01-05 20:38] LABS: Bilirubin,Urine NEG (Negative); Blood,Urine LG (Negative); Calcium Oxalate Crystals,Urine 2+; Color,Urine Amber (Yellow); Mucus,Urine 3+ /HPF
[2021-01-05 20:53] LABS: RBC,Urine > 182.0 /HPF (0.0-6.0)
[2021-01-05] MEDS ORDERED: MAGNESIUM HYDROXIDE (MOM) ORAL LIQD UDC PO PRN (22:00)
[2021-01-05] MEDS ORDERED: MINERAL OIL 30 ML ORAL LIQD PO PRN (22:00)
[2021-01-05 22:02] LABS: Hematocrit 32.7 % (30.3-42.9)
[2021-01-06] MEDS: IBUPROFEN 800 MG TAB PO SCH ×2 (02:19→09:37)
--- NOTE | 2021-01-06 07:39 | Discharge Summary ---
Providers - Providers Date of Admission: 01/05/21 06:51 Date of discharge: 01/06/21 Attending physician: CHARLES BROWER Primary care physician: CHARLES BROWER Hospitalization Reason for admission: active labor Delivery: Procedure details: Please see delivery note Laceration: none Incision: normal Other procedures: none complications: none Discharge diagnosis: IUP at term delivered baby: male Hospital course: Pt was admitted in active labor and went on to have a spontaneous vaginal delivery. Her course was uncomplicated and she met discharge criteria on PPD#1. She will follow up in 4 wks in the office. Condition at discharge: Stable Disposition: DC-01 TO HOME OR SELFCARE - Discharge Diagnoses (1) Morbid obesity with BMI of 50.0-59.9, adult Status: Acute (2) Active labor Status: Acute (3) Single live Status: Acute Plan - Discharge Medications Prescriptions: Ibuprofen [Motrin] 800 mg PO Q8HR PRN #30 tablet PRN Reason: Pain, Moderate (4-6) HYDROcodone/APAP 5-325 [Dawson 5/325] 1 each PO Q6HR PRN #20 tablet PRN Reason: Pain - Provider Discharge Summary Activity: routine, no sex for 6 weeks, no heavy lifting 4 weeks, no strenuous exercise Diet: routine Instructions: routine Additional instructions: [] Smoking cessation referral if applicable(refer to patient education folder for contact #) [] Refer to [facility] Booklet Call your doctor immediately for: * Fever > 100.5 * Heavy vaginal bleeding ( >1 pad per hour) * Severe persistent headache * Shortness of breath * Reddened, hot, painful area to leg or breast * Drainage or odor from incision. * Keep incision clean and dry at all times and follow doctor's instructions regarding bathing/showering - Follow up plan Follow up: CLEMENTINE MICHAEL BLOOD DONOR UNIT ASSISTANT [Advanced Practice Nurse] - 02/03/21 (Please call to schedule your appt If you would like your son to be circumcisd, please schedule his appt before he is one month old. )
--- NOTE | 2021-01-06 07:39 | Progress Note ---
Assessment and Plan A: PPD#1 s/p at term Morbid Obesity RH Negative P: Routine care Rhogam prior to discharge Follow up in office in 4 wks Subjective - Subjective Date of service: 01/06/21 Principal diagnosis: s/p at term, Morbid Obesity Interval history: No complaints overnight. She is concerned her baby is breathing too fast. Bleeding decreasing. She would like to go home if she can. Patient reports: appetite normal, voiding normally, pain well controlled, ambulating normally : doing well Objective - Vital Signs Latest vital signs: Vital Signs Temp Pulse Resp BP BP BP Pulse Ox 01/06/21 00:49 97.9 F 86 20 133/71 92 01/05/21 20:42 98.1 F 91 H 20 123/74 97 01/05/21 17:25 98.3 F 98 H 18 123/67 94 01/05/21 09:43 97.7 F 83 18 137/81 96 01/05/21 09:09 77 98 01/05/21 09:04 86 97 01/05/21 09:02 76 138/68 01/05/21 09:00 97.7 F 85 14 138/68 97 01/05/21 08:59 80 97 01/05/21 08:54 84 97 01/05/21 08:49 87 97 01/05/21 08:47 80 148/96 01/05/21 08:45 80 16 148/96 97 01/05/21 08:44 89 98 01/05/21 08:39 77 99 01/05/21 08:38 75 151/93 01/05/21 08:34 82 98 01/05/21 08:30 81 15 151/93 97 01/05/21 08:29 86 99 01/05/21 08:24 88 98 01/05/21 08:23 93 H 145/90 01/05/21 08:21 78 16 137/86 137/86 98 01/05/21 08:19 91 H 97 01/05/21 08:14 85 98 01/05/21 08:09 89 99 01/05/21 08:04 112 H 99 01/05/21 07:59 101 H 96 01/05/21 07:54 100 H 94 01/05/21 07:49 95 H 96 01/05/21 07:44 96 H 98 01/05/21 07:39 93 H 98 Intake and Output 01/05/21 01/06/21 01/06/21 22:59 06:59 14:59 Intake Total 440 360 Output Total 250 Balance 190 360 Intake: Oral 440 Intake, Free Water 360 Output: Urine 250 Void 250 Other: Total, Intake Amount 200 Total, Output Amount 250 # Voids Void 1 1 - Exam Abdomen: Present: soft (obese ) Uterus: Present: fundal height at umbilicus Extremities: Present: edema (trace) - Labs Labs: Abnormal lab results 01/05/21 01/05/21 Range/Units 07:15 20:00 WBC 16.5 H (4.5-11.0) K/mm3 Ur Specific [place] 1.033 H (1.003-1.030) Urine WBC (Auto) 14.0 H (0.0-6.0) /HPF
[2021-01-06] MEDS ORDERED: MEASLES, MUMPS & RUBELLA 12,500 UNIT/0.5 ML VACCINE SUB-Q ONE (08:38)
[2021-01-06] MEDS ORDERED: DIPHtheria,PERTUSSIS(ACELL),TETANUS VACCINE/PF 0.5 ML VIAL IM ONE (08:39)
[2021-01-06 13:46] VITALS: BP 125/75
== END 2021-01-06 12:45 | disposition home or self-care (01) | DRG 774 ==
LOC: TRG 06:13 → APU 06:22 → LD 06:51 → TRG 06:51 → OBSVTOIN 06:51 → OB 09:54
PROVIDERS: ADMIT Obstetrics & Gynecology; ATTEND Obstetrics & Gynecology
PROC: 10E0XZZ Delivery of Products of Conception, External Approach (ICD-10-PCS; principal; 2021-01-05)
PROC: 3E0234Z Introduction of Serum, Toxoid and Vaccine into Muscle, Percutaneous Approach (ICD-10-PCS; 2021-01-06)
DX: O62.3 Precipitate labor (principal); O98.32 Other infections with a predominantly sexual mode of transmission complicating childbirth; O99.52 Diseases of the respiratory system complicating childbirth; O99.214 Obesity complicating childbirth; E66.01 Morbid (severe) obesity due to excess calories; J45.909 Unspecified asthma, uncomplicated; Z37.0 Single live birth; Z3A.37 37 weeks gestation of pregnancy; Z20.822 Contact with and (suspected) exposure to COVID-19
CPT/HCPCS: 36415; 59025; 81001; 85014; 85018; 85027; 85461; 86592; 86706; 86762; 86803; 86850; 86900; 86901; 87086; 87806; 88307; 96360; 96365; 96372; G0378; J0290; J2590; J2790; J7120; U0003

== ENCOUNTER 2022-05-27 09:39 | Inpatient (IN) | payer MEDICAID ==
[2022-05-27] MEDS ORDERED: ePHEDrine SULFATE 50 MG/1 ML INJ IV PRN (12:48)
[2022-05-27] MEDS ORDERED: MINERAL OIL 30 ML ORAL LIQD PO PRN (12:48)
[2022-05-27] MEDS ORDERED: CARBOPROST TROMETHAMINE 250 MCG/1 ML INJ IM PRN (12:48)
[2022-05-27] MEDS ORDERED: TERBUTALINE 1 MG/1 ML INJ SUB-Q PRN (12:48)
[2022-05-27] MEDS ORDERED: OXYTOCIN 10 UNIT/1 ML INJ IM PRN (12:48)
[2022-05-27] MEDS ORDERED: miSOPROStol 200 MCG TAB PR PRN (12:48)
[2022-05-27] MEDS ORDERED: LIDOCAINE (2%) 20 MG/1 ML VIAL 20 ML MDV INFILTRATI ONE (12:48)
[2022-05-27] MEDS ORDERED: LOPERAMIDE 2 MG CAP PO PRN (12:48)
[2022-05-27] MEDS ORDERED: METHYLERGONOVINE MALEATE 0.2 MG/ML VIAL IM PRN (12:48)
[2022-05-27] MEDS ORDERED: NalbUPHINE 10 MG/1 ML INJ IV PRN (12:48)
[2022-05-27] MEDS ORDERED: ACETAMINOPHEN 325 MG TAB PO PRN (12:48)
[2022-05-27] MEDS ORDERED: PENICILLIN G POTASSIUM 5 MIL.UNITS in SODIUM CHLORIDE 0.9% 50 ML IV ONE (12:48)
[2022-05-27] MEDS ORDERED: ONDANSETRON 4 MG/2 ML INJ IV PRN ×2 (12:48→17:00)
[2022-05-27] MEDS ORDERED: PROMETHAZINE 25 MG TAB PO PRN (12:48)
[2022-05-27] MEDS ORDERED: fentaNYL 100 MCG/2 ML INJ IV PRN (12:48)
--- NOTE | 2022-05-27 12:48 | History and Physical Report ---
History of Present Illness Date of examination: 05/27/22 Chief complaint: ctx and LOF History of present illness: at 37.2wks by pt report. pt has no care and stated she was told her EDC was 06/15/22 by [facility]. Pt left triage AMA yesterday and said she would return when she was in labor. Pt had SROM today at home hence her return. PT states the fluid was like urine color but no smell. Denies vag bleed. Pt denies feeling contractions. Denies headache or vag bleed. Past History Past Medical History: other (morbid obesity) Past Surgical History: no surgical history Social history: no significant social history - Obstetrical History Expected Date of Delivery: 06/15/22 Actual Gestation: 37 Week(s) 2 Day(s) : 5 Hx # Term Pregnancies: 3 Spontaneous Abortions: 1 Number of Living Children: 3 Medications and Allergies Allergies Allergy/AdvReac Type Severity Reaction Status Date / Time codeine AdvReac Severe Vomiting Verified 11/14/20 13:41 Home Medications Medication Instructions Recorded Confirmed Last Taken Type Ibuprofen [Motrin 600 MG tab] 600 mg PO Q6HR #60 tablet 02/11/20 01/05/21 Unknown Rx HYDROcodone/APAP 5-325 [Lee 1 each PO Q6HR PRN #20 tablet 01/06/21 Unknown Rx 5/325] Ibuprofen [Motrin] 800 mg PO Q8HR PRN #30 tablet 01/06/21 Unknown Rx Review of Systems All systems: negative (LOF) - Vital Signs Vital signs: Vital Signs Pulse Pulse Ox 89 97 05/27/22 09:59 05/27/22 09:59 Temp Pulse Resp BP Pulse Ox 97.9 F 96 H 20 128/62 84 05/27/22 10:00 05/27/22 12:46 05/27/22 10:00 05/27/22 10:01 05/27/22 12:46 - Physical Exam Breasts: Positive: deferred Cardiovascular: Regular rate Lungs: Positive: Normal air movement Abdomen: Positive: soft Genitourinary (Female): Positive: normal external genitalia Extremities: Positive: normal - Obstetrical FHR: category 1 Uterine Contraction Monitor Mode: External Uterine Contraction Pattern: Absent Results Result Diagrams: 05/27/22 13:13 Abnormal lab results 05/27/22 Range/Units Unknown Membranes Rupture Positive A (Negative) All other labs normal. Assessment and Plan Grand multiparous without confirmed dates, non-vertex presentation and SROM 1. Will give one dose of steroids 2. Keep NPO and plan for section after anatomy and dates confirmed. 3. 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 NICU and anesthesiology notified
[2022-05-27] MEDS ORDERED: OXYTOCIN DRIP 30 UNITS/500 ML BAG IV SCH ×4 (13:00→17:00)
[2022-05-27] MEDS ORDERED: LACTATED RINGERS 1,000 ML IV SCH ×2 (13:00→16:30)
[2022-05-27 13:54] LABS: Hematocrit 35.1 % (30.3-42.9); Hemoglobin 11.7 gm/dl (10.1-14.3)
[2022-05-27] MEDS ORDERED: BETAMET ACET/BETAMET NA PH 6 MG/ML INJ 5 ML MDV IM SCH (15:10)
[2022-05-27 15:48] LABS: Alanine Aminotransferase 28 units/L (7-56); Blood Urea Nitrogen 6 mg/dL (7-17); Calcium 8.7 mg/dL (8.4-10.2); Hemolysis Index 0
[2022-05-27] MEDS ORDERED: FAMOTIDINE 20 MG/2 ML INJ IV NR (15:51)
[2022-05-27] MEDS ORDERED: BICITRA ORAL LIQD 30ML PO NR (15:51)
[2022-05-27] MEDS ORDERED: METOCLOPRAMIDE 10 MG/2 ML INJ IV NR (15:51)
[2022-05-27 15:56] LABS: BUN/Creatinine Ratio 15
--- NOTE | 2022-05-27 15:57 | Anesthesia Day of Surgery ---
Anesthesia Day of Surgery - Day of Surgery Patient Examined: Yes Patient H&P Reviewed: Yes Patient is NPO: Yes Beta Blockers: No
--- NOTE | 2022-05-27 15:57 | Anesthesia Consultation ---
Anesthesia Consult and Med Hx - Airway Anesthetic Teeth Evaluation: Good ROM Head & Neck: Adequate Mental/Hyoid Distance: Adequate Mallampati Class: Class III Intubation Access Assessment: Probably Good - Pulmonary Exam CTA: Yes - Cardiac Exam Cardiac Exam: RRR - Pre-Operative Health Status ASA Pre-Surgery Classification: ASA3 Proposed Anesthetic Plan: Spinal Nerve Block: tap - Pulmonary Hx Smoking: No Hx Asthma: Yes (last attack a few months ago) Hx Respiratory Symptoms: No SOB: No COPD: No Home Oxygen Therapy: No Hx Pneumonia: No Hx Sleep Apnea: No - Cardiovascular System Hx Hypertension: No Hx Coronary Artery Disease: No Hx Heart Attack/AMI: No Hx Angina: No Hx Percutaneous Transluminal Coronary Angioplasty (PTCA): No Hx Cardia Arrhythmia: No Hx Pacemaker: No Hx Internal Defibrillator: No Hx Valvular Heart Disease: No Hx Heart Murmur: No - Central Nervous System Hx Neuromuscular Disorder: No Hx Seizures: No CVA: No Hx Back Pain: No Hx Psychiatric Problems: No - Gastrointestinal Hx Ulcer: No Hx Gastroesophageal Reflux Disease: Yes - Endocrine Hx Renal Disease: No Hx End Stage Renal Disease: No Hx Cirrhosis: No Hx Liver Disease: No Hx Insulin Dependent Diabetes: No Hx Non-Insulin Dependent Diabetes: No Hx Thyroid Disease: No Hx Hypothyroidism: No Hx Hyperthyroidism: No - Hematic Hx Anemia: No Hx Sickle Cell Disease: No - Other Systems Hx Alcohol Use: No Hx Substance Use: No Hx Cancer: No Hx Obesity: No
[2022-05-27 15:59] LABS: Basophils % (Auto) 0.5 % (0.0-1.8); Eosinophils # (Auto) 0.1 K/mm3 (0.0-0.4); Eosinophils % (Auto) 0.7 % (0.0-4.3); Hemoglobin 11.5 gm/dl (10.1-14.3); Lymphocytes # (Auto) 1.9 K/mm3 (1.2-5.4); Lymphocytes % (Auto) 18.6 % (13.4-35.0); Mean Corpuscular HGB Conc 34 % (30-34); Mean Corpuscular Volume 87 fl (79-97); Monocytes # (Auto) 0.6 K/mm3 (0.0-0.8); Monocytes % (Auto) 6.4 % (0.0-7.3); Platelet Count 325 K/mm3 (140-440); Red Cell Distribution Width 14.5 % (13.2-15.2)
[2022-05-27] MEDS ORDERED: WITCH HAZEL/ GLYCERIN PAD TP PRN (16:05)
[2022-05-27] MEDS ORDERED: HYDROCORTISONE 25 MG RECTAL SUPP PR PRN (16:05)
[2022-05-27] MEDS ORDERED: ONDANSETRON 4 MG/2 ML INJ ONE (16:07)
[2022-05-27] MEDS ORDERED: ePHEDrine SULFATE 50 MG/1 ML INJ ONE (16:07)
[2022-05-27] MEDS ORDERED: ceFAZolin 1 GM VIAL ONE (16:07)
--- NOTE | 2022-05-27 16:18 | Ultrasound Report ---
ULTRASOUND OBSTETRIC INDICATION: gest age, anatomy and dates. Clinical Gestational Age (GA): 37.2 weeks TECHNIQUE: Transabdominal. COMPARISON: No relevant prior imaging study available. FINDINGS: There is a single intrauterine . Biparietal Diameter = 9.46 cm = 38 weeks, 4 day(s). Head Circumference = 34.38 cm = 39 weeks, 5 day(s). Abdominal Circumference = 34.71 cm = 38 weeks, 4 day(s). Femur Length = 6.88 cm = 35 weeks, 2 day(s). Average Ultrasound Age (AUA) = 38 weeks, 0 day(s). Heart Rate: 136 beats per minute. Estimated Weight in grams (if calculated): 3365 Estimated Weight Growth Percentile (if calculated): 76 Position: cephalic. Cervix: closed. Length in cm (if measured): Not measured Placenta: anterior and free of the os. Amniotic Fluid Volume: decreased Amniotic Fluid Index (MICHAEL) in cm (if calculated): 2.6. Maternal Adnexa: No significant abnormality. IMPRESSION: 1. Single, living intrauterine with estimated sonographic age of 38 weeks, 0 day(s). 2. Decreased amniotic fluid index of 2.6 cm. 3. No other significant abnormality. Signer Name: Prashanth Bravo MD Signed: 05/27/2022 4:14 PM Workstation Name: [email or web address]
[2022-05-27] MEDS ORDERED: PROMETHAZINE 25 MG RECT SUPP PR PRN (17:00)
[2022-05-27] MEDS ORDERED: D5W/LACTATED RINGERS 1,000 ML IV SCH (17:00)
[2022-05-27] MEDS ORDERED: AZITHROMYCIN/NS 500 MG/250 ML 500 MG/250 ML BAG IV SCH (17:00)
[2022-05-27] MEDS ORDERED: LANOLIN/ZINC/DIMETHICONE (LANSINOH) 7 GM TP PRN (17:00)
[2022-05-27] MEDS ORDERED: oxyCODONE /ACETAMINOPHEN 5-325MG TAB PO PRN (17:00)
[2022-05-27] MEDS ORDERED: IBUPROFEN 800 MG TAB PO PRN (17:00)
[2022-05-27] MEDS ORDERED: SIMETHICONE 80 MG CHEW TAB PO PRN (17:00)
[2022-05-27] MEDS ORDERED: IBUPROFEN 600 MG TAB PO PRN (17:00)
[2022-05-27] MEDS ORDERED: MORPHINE 4 MG/1 ML INJ IV PRN (17:00)
[2022-05-27] MEDS ORDERED: NALOXONE 0.4 MG/1 ML INJ IV PRN (17:00)
[2022-05-27] MEDS ORDERED: PENICILLIN G POTASSIUM 3 MIL.UNITS in SODIUM CHLORIDE 0.9% 50 ML IV SCH (17:00)
[2022-05-27] MEDS ORDERED: PHENYLEPHRINE/NS 1,000 MCG/10 ML SYRINGE (OR USE) IV ONE (17:15)
[2022-05-27] MEDS ORDERED: fentaNYL 100 MCG/2 ML INJ ONE (17:49)
[2022-05-27] MEDS ORDERED: KETOROLAC 30 MG/1 ML INJ ONE (18:25)
--- NOTE | 2022-05-27 19:11 | Procedure Note ---
OB Delivery Note - Delivery Date of Delivery: 05/27/22 Surgeon: GEGE MORA Estimated blood loss: other (600cc per nurse) - Section Preop diagnosis: breech Postop diagnosis: same (term IUP at 37.1wks, no care, Morbid Obesity, BMI 56.7) section procedure: primary low transverse Disposition: floor Complications: none Narrative: Date: 04/26/22 Surgeon: Gege Moar MD Preop Dx: IUP at 37.1wks, SROM, breech, Morbid Obesity, BMI 56.7 Postop Dx: same and partial placental abruption Procedure : Primary Low transverse section Anesthesia: Spinal Intake: 1500cc Output: 200cc less concentrated urine at the end of procedure EBL: 600cc After the risks, benefits and alternatives of procedure discussed, patient signed consents and was taken to the operating room. Pt was given spinal anesthesia. After same was adequate, patient was prepped and draped in the usual sterile fashion. Cordero catheter in place and draining very concentrated orange colored urine. Pt was given prophylactic antibiotic per protocol Ancef 3grams and zithromax 500mg IV and time out was done Pfannenstiel skin incision was made and taken sharply to the fascia and the incision extended using electrocautery. Superior edge of the fascia was grasped with pat clamps and the rectus muscle using blunt dissection and also using electrocautery. Lower portion of the fascia also using electrocautery. Rectus muscle in the midline and Peritoneal cavity entered bluntly and extended with good visualization of the bladder. Pako retractor placed without difficulty. The bladder flap was created sharply using metzenbaum scissors. Uterus was rotated and tilted to the right, attempted made to straighten same by placed sponges bilaterally. Lower uterine segment though thick then entered transversely and amniotic sac entered using allys clamps. Uterine incision extended using bandage scissors. Infant complete breech and both feet delivered, followed by the body and nuchal cord x1 released from head, bulb suctioned, cord clamped and baby handed to waiting pediatricians. Anterior Placenta noted to be 70% and umbilical artery cord gas sent; remaining portion of the placenta then delivered completely and uterine cavity cleared of all clots and debri. The uterus was not exteriorized and closed in 2 layers using 0-monocryl] suture in a running locked fashion and then an additional layer of imbrication suture. Excellent hemostasis noted. Time taken to locate surgicel powder, none found therefore surgicel placed along the uterine incision. The gutters were cleared of clots and debri and anterior peritoneum and rectus muscle reapproximated using 0-vicryl suture in a running fashion. Rectus fascia closed with 0-vicryl suture in a continuous fashion and subcutaneous tissue copiously irrigated with normal saline and re-approximated using 3-0 vicryl suture in a continuous fashion. Excellent hemostasis remains. The skin was closed with 4-0 monocryl suture in a subcutaneous fashion and steristrips placed with pressure dressing. Sponge, lap, instrument and needle counts x2 were normal. Patient tolerated the procedure well and was taken to recovery room stable. Findings: Viable female , APGARS 7/8 and weight 3380g. Umbilical artery gas pH 7.3 and BE -0.4 ; nuchal cord x1; Normal uterus, left tube and ovary wnl, right tube and ovary not seen due to enlarged uterus and pt having discomfort. Placenta with partial abruption Pathology: placenta
[2022-05-27] MEDS ORDERED: methylPREDNISolone Sod Suc 500 MG in SODIUM CHLORIDE 0.9% 100 ML IV PRN (19:51)
[2022-05-27] MEDS ORDERED: ALBUTEROL 2.5 MG/3 ML NEBU IH PRN (19:53)
[2022-05-27] MEDS ORDERED: SODIUM CHLORIDE 0.9% 1000 ML 1,000 ML ONE (20:14)
[2022-05-27] MEDS ORDERED: SODIUM CHLORIDE 0.9% 1000 ML 1,000 ML IV ONE (20:36)
[2022-05-27] MEDS ORDERED: KETOROLAC 30 MG/1 ML INJ IV SCH (21:00)
[2022-05-27] MEDS ORDERED: SENNOSIDES 8.6 MG TAB PO PRN (22:00)
[2022-05-27] MEDS ORDERED: MAGNESIUM HYDROXIDE (MOM) ORAL LIQD UDC PO PRN (22:00)
[2022-05-27] MEDS ORDERED: KETOROLAC 30 MG/1 ML INJ IV PRN (23:10)
[2022-05-27] MEDS: ACETAMINOPHEN 500 MG TAB PO SCH (23:41)
[2022-05-28 01:31] LABS: Alanine Aminotransferase 28 units/L (7-56); Albumin 2.3 g/dL (3.9-5); Blood Urea Nitrogen 7 mg/dL (7-17); Calcium 7.7 mg/dL (8.4-10.2); Hemolysis Index 150
[2022-05-28 02:13] LABS: BUN/Creatinine Ratio 18
[2022-05-28] MEDS: ACETAMINOPHEN 500 MG TAB PO SCH ×2 (05:39→21:00)
[2022-05-28 06:41] LABS: Amphetamine Screen,Urine Negative; Benzodiazepines Screen,Urine Negative; Cannabinoid Screen,Urine Negative; Cocaine Screen,Urine Negative; Methadone Screen,Urine Negative; Opiate Screen,Urine Negative
[2022-05-28] MEDS ORDERED: HYDROmorphone 2 MG TAB PO SCH (08:00)
--- NOTE | 2022-05-28 09:27 | XRay Report ---
CHEST 1 VIEW 05/28/2022 7:15 AM INDICATION / CLINICAL INFORMATION: chronic cough, chronic smoker; post op c/s 05/27/22. COMPARISON: April 2011 FINDINGS: SUPPORT DEVICES: None. HEART / MEDIASTINUM: No significant abnormality. LUNGS / PLEURA: Increased density extending from the right hilum into the right upper lung No pneumot horax. ADDITIONAL FINDINGS: No significant additional findings. IMPRESSION: 1. Increased density extending from the right hilum into the right upper lung. Findings could represe nt atelectasis however nonspecific. Patient does have a smoking history and a close follow-up chest x -ray or CT is recommended to exclude abnormality in the right hilum. Signer Name: Julio César Celeste MD Signed: 05/28/2022 9:23 AM Workstation Name: [email or web address]
[2022-05-28] MEDS: FERROUS SULFATE 325 MG TAB PO SCH (09:40)
[2022-05-28] MEDS: PRENATAL VIT27-FE FUMARATE-FOLIC ACID VIT TAB PO SCH (09:40)
[2022-05-28 10:31] LABS: Basophils # (Auto) 0.1 K/mm3 (0.0-0.1); Basophils % (Auto) 0.5 % (0.0-1.8); Eosinophils % (Auto) 0.4 % (0.0-4.3); Hematocrit 30.2 % (30.3-42.9); Hemoglobin 9.9 gm/dl (10.1-14.3); Lymphocytes # (Auto) 1.7 K/mm3 (1.2-5.4); Lymphocytes % (Auto) 13.8 % (13.4-35.0); Mean Corpuscular HGB Conc 33 % (30-34); Mean Corpuscular Volume 87 fl (79-97); Monocytes % (Auto) 8.3 % (0.0-7.3); Platelet Count 316 K/mm3 (140-440); Red Blood Count 3.45 M/mm3 (3.65-5.03); Red Cell Distribution Width 14.6 % (13.2-15.2)
[2022-05-28] MEDS ORDERED: AZITHROMYCIN 250 MG TAB PO SCH ×2 (12:13→13:00)
[2022-05-28] MEDS ORDERED: cephALEXin 500 MG CAP PO SCH (14:00)
--- NOTE | 2022-05-28 14:33 | Progress Note ---
Assessment and Plan A: POD #1 Morbid Maternal Obesity Asymptomatic Anemia P: Follow routine Orders Continue FESO4 qd Subjective - Subjective Date of service: 05/28/22 Patient reports: appetite normal, voiding normally, pain well controlled, flatus, bowel movement, ambulating normally : doing well, bottle feeding Objective - Vital Signs Latest vital signs: Vital Signs Temp Pulse Pulse Resp Resp BP BP 05/28/22 11:55 98.3 F 70 20 126/60 05/28/22 07:45 98.1 F 73 20 119/66 05/28/22 04:00 98.6 F 88 16 119/75 05/28/22 00:56 98.6 F 77 18 102/54 05/27/22 23:29 80 16 05/27/22 21:30 98.1 F 70 16 118/61 05/27/22 20:38 70 14 131/68 05/27/22 20:05 98.3 F 67 124/75 05/27/22 19:50 70 13 113/57 05/27/22 19:35 81 11 L 133/82 05/27/22 19:20 86 11 L 137/81 05/27/22 19:15 69 10 L 119/65 05/27/22 19:10 62 11 L 135/74 05/27/22 19:05 64 16 132/68 05/27/22 15:57 81 05/27/22 15:52 88 05/27/22 15:47 80 05/27/22 15:42 76 05/27/22 15:37 78 05/27/22 15:32 75 05/27/22 15:27 75 05/27/22 15:22 70 05/27/22 15:17 75 05/27/22 15:12 80 05/27/22 15:07 73 05/27/22 15:02 81 05/27/22 14:57 71 05/27/22 14:52 82 05/27/22 14:47 75 05/27/22 14:42 75 05/27/22 14:37 85 05/27/22 14:32 74 Pulse Ox Pulse Ox 05/28/22 11:55 96 05/28/22 07:45 92 05/28/22 04:00 05/28/22 00:56 94 05/27/22 23:29 05/27/22 21:30 97 97 05/27/22 20:38 96 05/27/22 20:05 98 05/27/22 19:50 99 05/27/22 19:35 97 05/27/22 19:20 93 05/27/22 19:15 96 05/27/22 19:10 97 05/27/22 19:05 97 05/27/22 15:57 98 05/27/22 15:52 98 05/27/22 15:47 98 05/27/22 15:42 97 05/27/22 15:37 98 05/27/22 15:32 99 05/27/22 15:27 98 05/27/22 15:22 97 05/27/22 15:17 97 05/27/22 15:12 97 05/27/22 15:07 98 05/27/22 15:02 98 05/27/22 14:57 99 05/27/22 14:52 100 05/27/22 14:47 99 05/27/22 14:42 98 05/27/22 14:37 98 05/27/22 14:32 98 Intake and Output 05/27/22 05/28/22 05/28/22 22:59 06:59 14:59 Intake Total 2800 100 120 Output Total 368 867 4583 Balance 2550 -400 -980 Intake: IV 2800 100 ceFAZolin 2 GM In NaCl 0. 100 9% 100 ml @ 200 mls/hr IV Q8H [facility] Rx#:[id number] Oral 120 Output: Urine 187 [id number] Indwelling Catheter 500 Void 1100 Other: Total, Intake Amount 120 Total, Output Amount 150 400 # Bowel Movements 1 Estimated Blood Loss 600 - Exam Breasts: Present: normal Cardiovascular: Present: Regular rate Lungs: Present: Clear to auscultation, Normal air movement Abdomen: Present: normal appearance, soft, normal bowel sounds Uterus: Present: normal, firm, fundal height below umbilicus Extremities: Present: normal Incision: Present: dry, dressed - Labs Labs: Abnormal lab results 05/27/22 05/27/22 05/28/22 Range/Units 13:13 15:52 00:51 WBC (4.5-11.0) K/mm3 RBC (3.65-5.03) M/mm3 Hgb (10.1-14.3) gm/dl Hct (30.3-42.9) % [place] % (Auto) (0.0-7.3) % [place] # (Auto) (0.0-0.8) K/mm3 Seg Neutrophils % 73.8 H (40.0-70.0) % Seg Neutrophils # (1.8-7.7) K/mm3 Sodium 134 L 132 L (137-145) mmol/L Carbon Dioxide 21 L 18 L (22-30) mmol/L BUN 6 L (7-17) mg/dL Creatinine 0.4 L 0.4 L (0.6-1.2) mg/dL Glucose 114 H (65-100) mg/dL Calcium 7.7 L (8.4-10.2) mg/dL Alkaline Phosphatase 190 H 147 H (35-129) units/L Total Protein 5.5 L (6.3-8.2) g/dL Albumin 3.0 L 2.3 L (3.9-5) g/dL 05/28/22 Range/Units 10:02 WBC 12.3 H (4.5-11.0) K/mm3 RBC 3.45 L (3.65-5.03) M/mm3 Hgb 9.9 L (10.1-14.3) gm/dl Hct 30.2 L (30.3-42.9) % [place] % (Auto) 8.3 H (0.0-7.3) % [place] # (Auto) 1.0 H (0.0-0.8) K/mm3 Seg Neutrophils % 77.0 H (40.0-70.0) % Seg Neutrophils # 9.5 H (1.8-7.7) K/mm3 Sodium (137-145) mmol/L Carbon Dioxide (22-30) mmol/L BUN (7-17) mg/dL Creatinine (0.6-1.2) mg/dL Glucose (65-100) mg/dL Calcium (8.4-10.2) mg/dL Alkaline Phosphatase (35-129) units/L Total Protein (6.3-8.2) g/dL Albumin (3.9-5) g/dL
[2022-05-28] MEDS: AZITHROMYCIN 250 MG TAB PO SCH (17:58)
[2022-05-28] MEDS: AMOXICILLIN/K CLAV 875/125MG TAB PO SCH (21:36)
[2022-05-29] MEDS: ACETAMINOPHEN 500 MG TAB PO SCH ×2 (03:00→09:25)
[2022-05-29] MEDS: FERROUS SULFATE 325 MG TAB PO SCH (09:18)
[2022-05-29] MEDS: AZITHROMYCIN 250 MG TAB PO SCH (09:19)
[2022-05-29] MEDS: PRENATAL VIT27-FE FUMARATE-FOLIC ACID VIT TAB PO SCH (09:19)
[2022-05-29] MEDS: AMOXICILLIN/K CLAV 875/125MG TAB PO SCH (09:24)
--- NOTE | 2022-05-29 12:59 | Progress Note ---
Assessment and Plan POD#2 C/S, morbid obesity doing well; abnormal CXR to right [place] and pt declines CT today to follow same. Pt states she will follow up as an outpatient to family practice and nurse told to give pt a copy of her CXR from 05/28/22 1. Discharge home and follow up in clinic in 1wk and pt taught wound care with dry towelette below panus and proper hygiene maintenance All questions encouraged and answered Subjective Date of service: 05/29/22 Principal diagnosis: POD#2 C/S Interval history: pt wants to go home. Pt has no complaints. pt is voiding. pain controlled with motrin and tylenol only. pt declines narcotics. pt is bottle feeding. Vag bleed less than a pad and pt states she is not wearing a pad Objective - Constitutional Vitals: Vital Signs - 12hr 05/29/22 05/29/22 01:58 07:39 Temperature 98.2 F 98.0 F Pulse Rate 83 76 Respiratory 18 20 Rate Blood Pressure 129/65 111/54 O2 Sat by Pulse 94 97 Oximetry General appearance: Present: no acute distress - Neck Neck: normal ROM - Respiratory Respiratory effort: normal - Breasts Breasts: deferred - Cardiovascular Rhythm: regular Extremities: No edema - Gastrointestinal General gastrointestinal: Present: soft, non-tender - Genitourinary Female genitourinary: other (Dressing removed, steristrips clean, dry and intact. Fundus 2cm below the umbilicus and non-tender; Lochia, scant on inner thighs and pt without a pad) - Psychiatric Psychiatric: cooperative - Labs CBC & Chem 7: 05/28/22 10:02 05/28/22 00:51 Medications & Allergies - Medications Allergies/Adverse Reactions: Allergies codeine Adverse Reaction (Severe, Verified 11/14/20 13:41) Vomiting Home Medications: Home Medications Medication Instructions Recorded Confirmed Last Taken Type Ibuprofen [Motrin 600 MG tab] 600 mg PO Q6HR #60 tablet 02/11/20 01/05/21 Unknown Rx HYDROcodone/APAP 5-325 [[place] 1 each PO Q6HR PRN #20 tablet 01/06/21 Unknown Rx 5/325] Ibuprofen [Motrin] 800 mg PO Q8HR PRN #30 tablet 01/06/21 Unknown Rx Acetaminophen/Diphenhydramine 2 each PO Q6HR 21 Days #40 tab 05/29/22 Unknown Rx [Tylenol Pm Ex-Strength Caplet] Amoxicillin/K Clav Tab [Augmentin 1 tab PO Q12HR 7 Days #14 tab 05/29/22 Unknown Rx 875 mg] Azithromycin [Zithromax TAB] 1,000 mg PO QDAY 2 Days #4 tab 05/29/22 Unknown Rx Ibuprofen [Motrin] 800 mg PO Q8HR PRN 21 Days #40 05/29/22 Unknown Rx tablet Active Medications: Generic Name Dose Route Start Last Admin Trade Name Freq PRN Reason Stop Dose Admin Acetaminophen 1,000 mg 05/27/22 21:00 05/29/22 09:25 Acetaminophen 500 Mg Tab PO 05/30/22 20:59 1,000 mg Q6H MARJORIE Administration Albuterol 2.5 mg 05/27/22 19:53 05/27/22 23:29 Albuterol 2.5 Mg/3 Ml Nebu IH 05/30/22 19:52 2.5 mg Q4HRT PRN Administration Wheezing Amoxicillin/Clavulanate Potassium 1 each 05/28/22 22:00 05/29/22 09:24 Amoxicillin/K Clav 875/125mg Tab PO 06/02/22 23:59 1 each Q12HR MARJORIE Administration Protocol Azithromycin 1,000 mg 05/28/22 18:00 05/29/22 09:19 Azithromycin 250 Mg Tab PO 06/01/22 23:59 1,000 mg QDAY [facility] Administration Protocol Betamethasone Acet/Betameth SodPhos 12 mg 05/27/22 15:10 Betamet Acet/Betamet Na Ph 6 Mg/Ml Inj 5 Ml Mdv IM Q24HR [facility] Carboprost Tromethamine 250 mcg 05/27/22 12:48 Carboprost Tromethamine 250 Mcg/1 Ml Inj IM ONCE PRN Uterine Bleeding Ephedrine Sulfate 10 mg 05/27/22 12:48 Ephedrine Sulfate 50 Mg/1 Ml Inj IV Q2M PRN Hypotension Fentanyl 100 mcg 05/27/22 12:48 Fentanyl 100 Mcg/2 Ml Inj IV Q2H PRN Pain,Severe (7-10) LABOR PAIN Ferrous Sulfate 325 mg 05/28/22 10:00 05/29/22 09:18 Ferrous Sulfate 325 Mg Tab PO 325 mg QDAY MARJORIE Administration Hydrocortisone Acetate 25 mg 05/27/22 16:05 Hydrocortisone 25 Mg Rectal Supp OR BID PRN Hemorrhoids Hydromorphone HCl 4 mg 05/28/22 08:00 05/29/22 09:25 Hydromorphone 2 Mg Tab PO 05/30/22 07:59 Not Given Q6H MARJORIE Lactated Ringer's 1,000 mls @ 125 mls/hr 05/27/22 13:00 05/27/22 14:24 Lactated Ringers IV 125 mls/hr DIRECT MARJORIE Administration Oxytocin/Sodium Chloride 30 units in 500 mls @ 0 mls/hr 05/27/22 16:30 Pitocin/Ns 30 Unit/500ml IV TITR MARJORIE Protocol As Directed Dextrose/Lactated Ringer's 1,000 mls @ 125 mls/hr 05/27/22 17:00 D5lr IV DIRECT MARJORIE Oxytocin/Sodium Chloride 30 units in 500 mls @ 40 mls/hr 05/27/22 17:00 Pitocin/Ns 30 Unit/500ml IV TITR MARJORIE Protocol Methylprednisolone Sodium 100 mls @ 200 mls/hr 05/27/22 19:51 Succinate 500 mg/ Sodium IV 05/29/22 19:50 Chloride ONCE PRN Anaphylaxis Ibuprofen 600 mg 05/27/22 17:00 05/28/22 09:51 Ibuprofen 600 Mg Tab PO 600 mg Q6H PRN Administration Pain, Mild (1-3) Ibuprofen 800 mg 05/27/22 17:00 05/28/22 17:57 Ibuprofen 800 Mg Tab PO 800 mg Q6H PRN Administration Pain, Moderate (4-6) Ketorolac Tromethamine 15 mg 05/27/22 23:10 05/28/22 02:52 Ketorolac 30 Mg/1 Ml Inj IV 06/01/22 23:09 15 mg Q6H PRN Administration Pain, Mild (1-3) Loperamide HCl 2 mg 05/27/22 12:48 Loperamide 2 Mg Cap PO ONCE PRN give with Hemabate Magnesium Hydroxide 30 ml 05/27/22 22:00 Magnesium Hydroxide (Mom) Oral Liqd Udc PO QHS PRN Constip Unrelieved By Senna Methylergonovine Maleate 0.2 mg 05/27/22 12:48 Methylergonovine Maleate 0.2 Mg/Ml Vial IM ONCE PRN Uterine Bleeding Mineral Oil 30 ml 05/27/22 12:48 Mineral Oil 30 Ml Oral Liqd PO QHS PRN Constipation Misoprostol 800 mcg 05/27/22 12:48 Misoprostol 200 Mcg Tab OR ONCE PRN Uterine Bleeding Morphine Sulfate 4 mg 05/27/22 17:00 Morphine 4 Mg/1 Ml Inj IV Q4H PRN Pain , Severe (7-10) Multi-Ingredient Ointment 1 applic 05/27/22 17:00 Lanolin/Zinc/Dimethicone (Lansinoh) 7 Gm TP PRN PRN dryness/cracking Multivitamins/Iron/Calcium 1 each 05/28/22 10:00 05/29/22 09:19 [id number] Fumarate-Folic Acid Vit Tab PO 1 each QDAY MARJORIE Administration Nalbuphine HCl 10 mg 05/27/22 12:48 Nalbuphine 10 Mg/1 Ml Inj IV Q2H PRN Pain, Moderate (4-6) Naloxone HCl 0.1 mg 05/27/22 17:00 Naloxone 0.4 Mg/1 Ml Inj IV Q2MIN PRN Res Rate </= 8 or 02 SAT < 92% Ondansetron HCl 4 mg 05/27/22 17:00 Ondansetron 4 Mg/2 Ml Inj IV Q8H PRN Nausea And Vomiting Oxycodone/Acetaminophen 2 tab 05/27/22 17:00 Oxycodone /Acetaminophen 5-325mg Tab PO Q4H PRN Pain, Moderate (4-6) Oxytocin 10 unit 05/27/22 12:48 Oxytocin 10 Unit/1 Ml Inj IM ONCE PRN Uterine Bleeding Promethazine HCl 25 mg 05/27/22 12:48 Promethazine 25 Mg Tab PO Q6H PRN Nausea And Vomiting Promethazine HCl 25 mg 05/27/22 17:00 Promethazine 25 Mg Rect Supp OR Q6H PRN N/V IF NPO AND NO IV ACCESS Senna 17.2 mg 05/27/22 22:00 Sennosides 8.6 Mg Tab PO QHS PRN Constipation Simethicone 80 mg 05/27/22 17:00 Simethicone 80 Mg Chew Tab PO Q6H PRN Gas pain Sodium Chloride 10 ml 05/27/22 17:00 Sodium Chloride 0.9% 10 Ml Flush Syringe IV 06/01/22 16:59 PRN NR Terbutaline Sulfate 0.25 mg 05/27/22 12:48 Terbutaline 1 Mg/1 Ml Inj SUB-Q ONCE PRN Hyperstimulation/Hypertonicity Witch Sofia/Glycerin 1 each 05/27/22 16:05 Witch Sofia/ Glycerin Pad TP PRN PRN Hemorrhoids/cleansing/soothing
--- NOTE | 2022-05-29 13:03 | Discharge Summary ---
Providers - Providers Date of Admission: 05/27/22 16:05 Date of discharge: 05/29/22 Attending physician: VIK MORA 05/28/22 07:21 Consult to Case Management [CONS] Routine Services Needed at Discharge: Other Notified:: No Comment:: No care Primary care physician: VIK MORA Hospitalization Reason for admission: rupture of membranes, IUP at term (breech diagnosed after pt in labor suite) Delivery: Procedure: section Episiotomy: none Laceration: none Incision: normal, dry (with steristrips), intact Other procedures: none complications: none Discharge diagnosis: IUP at term delivered (breech, morbid obesity) baby: male Hospital course: Term pt with no care, came in triage SROM and u/s diagnosed breech, pt counseled and primary section done uncomplicated. pt was allergic to codeine and declined all narcotics and pain controlled with tylenol and motrin only. Pt had low concentrated urine output prior to c/section most likely due to dehydration that resolved with adequate IV hydration. uneventful and pt wanted to go home on post op day 2. Pt was given IV zithromax pre and post op along with ancef due to foul vaginal discharge noted intraoperatively. Pt with asymptomatic anemia hgb 9.9 and wbc 12.3 on discharge. Condition at discharge: Good Disposition: 01 HOME / SELF CARE / HOMELESS Plan - Discharge Medications Prescriptions: Amoxicillin/K Clav Tab [Augmentin 875 mg] 1 tab PO Q12HR 7 Days #14 tab Ibuprofen [Motrin] 800 mg PO Q8HR PRN 21 Days #40 tablet PRN Reason: Pain, Moderate (4-6) Acetaminophen/Diphenhydramine [Tylenol Pm Ex-Strength Caplet] 2 each PO Q6HR 21 Days #40 tab Azithromycin [Zithromax TAB] 1,000 mg PO QDAY 2 Days #4 tab - Provider Discharge Summary Activity: no sex for 6 weeks Diet: routine Instructions: other (NO smoking, keep incision with dry hand towel and change 2- 3times per day; NO tub bath; make clinic appt for 1wk wound check [facility] in [place]) Additional instructions: [] Smoking cessation referral if applicable(refer to patient education folder for contact #) [] Refer to [facility] Booklet Call your doctor immediately for: * Fever > 100.5 * Heavy vaginal bleeding ( >1 pad per hour) * Severe persistent headache * Shortness of breath * Reddened, hot, painful area to leg or breast * Drainage or odor from incision. * Keep incision clean and dry at all times and follow doctor's instructions regarding bathing/showering - Follow up plan Follow up: VIK MORA MD [Primary Care Provider] - 7 Days
[2022-05-29 15:03] VITALS: BP 118/55
== END 2022-05-29 15:25 | disposition home or self-care (01) | DRG 765 ==
LOC: TRG 09:39 → APU 09:40 → LD 12:17 → TRG 12:56 → OBSVTOIN 16:05 → APU 16:37 → OB 21:30
PROVIDERS: ADMIT Obstetrics & Gynecology; ATTEND Obstetrics & Gynecology
PROC: 10D00Z1 Extraction of Products of Conception, Low, Open Approach (ICD-10-PCS; principal; 2022-05-27)
DX: O32.1XX0 Maternal care for breech presentation, not applicable or unspecified (principal); O45.93 Premature separation of placenta, unspecified, third trimester; Z20.822 Contact with and (suspected) exposure to COVID-19; Z3A.37 37 weeks gestation of pregnancy; Z37.0 Single live birth; O99.214 Obesity complicating childbirth; E66.01 Morbid (severe) obesity due to excess calories; O99.52 Diseases of the respiratory system complicating childbirth; J45.909 Unspecified asthma, uncomplicated; O99.62 Diseases of the digestive system complicating childbirth; K21.9 Gastro-esophageal reflux disease without esophagitis; O90.81 Anemia of the puerperium; Z88.6 Allergy status to analgesic agent
CPT/HCPCS: 36415; 71045; 76805; 76816; 80053; 80307; 84112; 85014; 85018; 85025; 85461; 86592; 86706; 86762; 86850; 86900; 86901; 87806; 88307; 94640; G0378; J3490; J0690; J1885; J2370; J2405; J2540; J2765; J3010; J7030; J7120; U0003